=== PATIENT | female | born 1960 | race Caucasian/White ===

== ENCOUNTER → 2016-06-04 | Outpatient (CLI) | payer OTHER ==
--- NOTE | 2016-06-05 08:19 | MA ---
Screening Digital Mammogram with Digital Breast Tomosynthesis Clinical Indications: Routine screening. Technique: Standard cephalocaudal projections are obtained. Digital breast tomosynthesis was perform ed in the MLO projection with reconstruction at 1.0 mm slice thickness and composite MLO views recons tructed. This examination is processed by the CAD computer aided detection system. Comparison: April 22, 2015; January 31, 2014; and studies dating back to December 13, 2007. Breast density: B; There are scattered areas of fibroglandular density. Findings: CAD was reviewed. There are no new masses, new clusters of microcalcifications, or significant axillary lymphadenopathy . Impression: Negative mammogram. BI-RADS 1. Recommendation: Routine screening mammogram is recommended in one year. [facility] will send a result letter to the patient. Negative mammography should not preclude additional workup of a clinically suspicious finding. The patient's information is entered into a reminder system with a target due date for her next mammo gram.
== END ==
LOC: FIMAGING 15:50
DX: Z12.31 Encounter for screening mammogram for malignant neoplasm of breast (principal)
CPT/HCPCS: G0202

== ENCOUNTER 2016-06-20 07:15 | Emergency (ER) | payer OTHER ==
--- NOTE | 2016-06-20 08:14 | EDPHY ---
General - History History Review: I reviewed the patient's medical records Smoking Status: Never smoked Narrative: CHIEF COMPLAINT: Cough, flu-like symptoms HISTORY OF PRESENT ILLNESS: 5 to 6 days of cough, congestion, runny nose, fever , body aches. Minimal headache. No chest pain or shortness of breath. Symptoms have been mild to moderate. They are worse when lying down and improves arrest. Minimal change with [id number] remedies such as emergent C, cold ease and NSAIDs. No abdominal pain, nausea or vomiting. No flank pain. No urinary complaints. Her was sick for 2 weeks prior to this with similar complaints. She has no other associated complaints or modifying factors. REVIEW OF SYSTEMS: Ten systems reviewed and are negative unless otherwise noted in the HPI EXAMINATION General Appearance: Alert, no distress , coryza Head: normocephalic, atraumatic Eyes: Pupils equal and round, no conjunctival pallor or injection. EOMs intact. ENT, Mouth: Mucous membranes moist . Postnasal drip. No erythema or edema. No abscess. Ears are clear AOM are EOM Neck: Normal inspection, supple, non-tender. Anterior lymphadenopathy. No supraclavicular lymphadenopathy. Range of motion in all planes is painless Respiratory: Lungs are clear to auscultation. No wheezing, rhonchi or crackles. Cardiovascular: Tachycardic at 110 beats per minute. regular rhythm. No murmur. Pulses intact distally Gastrointestinal: Abdomen is soft and nontender Back: non-tender, no bony abnormalities Neurological: A&O, nonfocal Skin: Warm and dry, no rash Extremities: Nontender, no pedal edema Psychiatric: Mood and affect normal DIFFERENTIAL DIAGNOSES: Including but not limited to influenza, upper respiratory infection, bronchitis , viral illness unless MDM: 8:00 a.m. multiple complaints that are consistent with flu-like illness versus viral upper respiratory infection versus bronchitis. Her lungs are clear in all vogt without any consolidation, wheezing or crackles. She has a normal pulse oximetry. She is mildly tachycardic and she is febrile. I did offer ibuprofen , but she has already taken some Just prior to arrival. flu swab has been taking is pending at this time 8:45 a.m. I have re-evaluated the patient. Flu test is negative. Likely a bronchitis or upper respiratory infection. 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 She remained stable and in no acute distress. Discharged home with Zithromax as prescribed. She is declining pain cough medication at this time as she has [id number] cough medication that she would like to take. Follow up with primary care physician. She is comfortable with this plan. SUPERVISION: This patient was independently evaluated without the aide of supervising physician. (Souleymane Aj) Discussion: The patient was evaluated and managed by the Physician Research Contracts Supervisor/ Nurse Practitioner. My co-signature indicates that I have reviewed this chart and I agree with the findings and plan of care as documented. I am the secondary supervising physician. (Sabra Davis) - Objective Vital Signs: Initial Vital Signs Temperature (C) 39.0 C H 06/20/16 07:21 Heart Rate 116 H 06/20/16 07:21 Respiratory Rate 18 06/20/16 07:21 Blood Pressure 166/95 H 06/20/16 07:21 O2 Sat (%) 95 06/20/16 07:21 O2 Delivery Mode Room Air Allergies/Adverse Reactions: No Known Allergies Allergy (Unverified 01/30/15 16:01) Home Medications: Medication Instructions Recorded Azithromycin [Zithromax] 250 mg PO DAILY #6 tab 06/20/16 celeCOXIB [CeleBREX] 06/20/16 Departure - Departure Disposition: Home, Routine, Self-Care Clinical Impression: Flu-like symptoms, Bronchitis Condition: Good Instructions: Viral Syndrome (ED) Additional Instructions: Follow-up with primary care physician. Return to the ER for worsening symptoms or any chest pain Referrals: FOREIGN ALY [Primary Care Provider] - As per Instructions Prescriptions: Azithromycin [Zithromax] 250 mg PO DAILY #6 tab
[2016-06-20 09:02] VITALS: BP 143/92; PULSE 108; RESP 16; TEMP 100.4; O2SAT 96
== END 2016-06-20 09:01 | disposition home or self-care (01) ==
DX: J11.1 Influenza due to unidentified influenza virus with other respiratory manifestations (principal); J20.9 Acute bronchitis, unspecified

== ENCOUNTER → 2017-06-07 | Outpatient (CLI) | payer OTHER | LOC: FIMAGING 15:42 | PROVIDERS: ATTEND Family Medicine | DX: Z12.31 Encounter for screening mammogram for malignant neoplasm of breast (principal) ==

== ENCOUNTER → 2018-06-30 | Outpatient (CLI) | payer OTHER | LOC: FIMAGING 15:24 | PROVIDERS: ATTEND Family Medicine | DX: Z12.31 Encounter for screening mammogram for malignant neoplasm of breast (principal) ==

== ENCOUNTER 2018-09-01 15:50 | Emergency (ER) | payer OTHER ==
[2018-09-01] MEDS ORDERED: LET GEL TOPICAL 1 EA SYR TP ONE ×2 (16:16→16:17)
--- NOTE | 2018-09-01 16:16 | EDPHY ---
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 She has a laceration to the nasal bridge no deformity or swelling. No vision changes. No forehead lacerations. No epistaxis. No dental deformity or malocclusion. She states she did not hit her head and did not lose consciousness. She has no neck pain. She has mild right lateral hand pain but no bruising swelling or abrasions. She does not think it is broken. Severity: Moderate Modifying factors: None REVIEW OF SYSTEMS: Constitutional: denies: chills, fever, recent illness, recent injury EENTM: See HPI Respiratory: denies: cough, shortness of breath Cardiac: denies: chest pain, irregular heart rate, lightheadedness, palpitations Gastrointestinal/Abdominal: denies: abdominal pain, diarrhea, nausea, vomiting, blood streaked stools Genitourinary: denies: dysuria, frequency, hematuria, pain Musculoskeletal: See HPI Skin: denies: lesions, rash, jaundice, bruising Neurological: denies: headache, numbness, paresthesia, tingling, dizziness, weakness Hematologic/Lymphatic: denies: blood clots, easy bleeding, easy bruising Immunologic/allergic: denies: HIV/AIDS, transplant 10 systems reviewed and negative except as noted EXAM: GENERAL: Well-appearing, well-nourished and in no acute distress. HEAD: Atraumatic, normocephalic. EYES: Pupils equal round and reactive to light, extraocular movements intact, sclera anicteric, conjunctiva are normal. ENT: TMs normal, abrasion/laceration to nasal bridge, no swelling or crepitus. No deformity. Breathing clearly. No epistaxis. No septal hematoma. nares patent, oropharynx clear without exudates. Moist mucous membranes. No mandibular pain. No dental fractures or malalignment. NECK: Normal range of motion, supple without lymphadenopathy or JVD. LUNGS: Breath sounds clear to auscultation bilaterally and equal. No wheezes rales or rhonchi. HEART: Regular rate and rhythm without murmurs, rubs or gallops. ABDOMEN: Soft, nontender, normoactive bowel sounds. No guarding, no rebound. No masses appreciated. BACK: No CVA tenderness, no spinal tenderness, step-offs or deformities EXTREMITIES: Mild right lateral hand pain, no swelling or deformity. No pain with axial letting. Normal strength. Normal range of motion, no pitting or edema. No clubbing or cyanosis. NEUROLOGICAL: Cranial nerves II through XII grossly intact. Normal speech, normal gait. 5/5 strength, normal movement in all extremities, normal sensation , normal reflexes PSYCH: Normal mood, normal affect. 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 arthritis, HTN, lumbar laminectomy, - Family History Significant Family History: No pertinent family hx - Social History Smoking Status: Never smoked Alcohol Use: None Constitutional: Initial Vital Signs Temperature (C) 37.1 C 09/01/18 15:54 Heart Rate 91 09/01/18 15:54 Respiratory Rate 16 09/01/18 15:54 Blood Pressure 171/89 H 09/01/18 15:54 O2 Sat (%) 95 09/01/18 15:54 O2 Delivery Mode Room Air Allergies/Adverse Reactions: No Known Allergies Allergy (Unverified 09/01/18 15:54) Home Medications: Medication Instructions Recorded celeCOXIB [CeleBREX] 06/20/16 Losartan/Hctz 50/12.5 09/01/18 Medical Decision Making Procedures: Procedure: Laceration repair. Verbal consent was obtained from the patient. The 2 cm H shaped nose laceration was anesthetized with 1% lidocaine with epi and bicarbonate locally infiltrated. The wound was irrigated copiously according to protocol, draped and explored to its base. It was approximately 1/2 cm deep. There were no deep structures involved. No tendon, nerve, or vascular injury was identified when explored through full range of motion. No foreign body was identified. The wound was repaired with 6.0 fast-absorbing gut, 7 sutures, interrupted. The wound repair was complex with multiple flap alignment. The procedure was performed by myself. A dressing was then placed with sterile gauze. ED Course/Re-evaluation: Patient declines x-rays of her hand or CT of her nose. I agree that they are unlikely to be fractured. She will require sutures for her nose. Will place LET before injection. 5:30 p.m. Patient tolerated suture suture repair well. It was unusually shaped in the shape of an "H". I was able to realign the flaps carefully however she understands that some of them may not survive. She has been bandage. We discussed care for observable sutures. 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 We discussed follow-up and indications for returning. She continues to decline x- rays. Differential Diagnosis: Partial list of the Differential diagnosis considered include but were not limited to; laceration, fracture and although unlikely based on the history and physical exam, I also considered septal hematoma eye injury, head injury, neck injury. I discussed these differential diagnoses and the plan with the patient as well as the usual and expected course. The patient understands that the diagnosis is provisional and that in medicine we are not always correct and that further workup is often warranted. Usual and customary warnings were given. All of the patient's questions were answered. The patient was instructed to return to the emergency department should the symptoms at all worsen or return, otherwise to followup with the physician as we discussed. - Data Points Medications Given: Discontinued Medications Diphtheria/Tetanus/Acell Pertussis (Boostrix) 0.5 ml IM .ONCE ONE Stop: 09/01/18 16:18 Last Admin: 09/01/18 16:24 Dose: 0.5 ml Tetracaine/Epinephrine/Lidocaine (Let Gel Topical) 1 ea TP EDNOW ONE Stop: 09/01/18 16:18 Last Admin: 09/01/18 16:18 Dose: 1 ea Departure - Departure Disposition: Home, Routine, Self-Care Clinical Impression: Laceration Condition: Fair Instructions: Care For Your Absorbable Stitches (ED) Additional Instructions: If your stitches do not fall out in 5-6 days return to have them removed. Referrals: FOREIGN ALY [Primary Care Provider] - As per Instructions
[2018-09-01] MEDS ORDERED: TDAP ADULT 0.5 ML INJ (BOOSTRIX) IM ONE (16:17)
[2018-09-01 17:44] VITALS: BP 140/78
== END 2018-09-01 17:42 | disposition home or self-care (01) ==
PROC: 09QKXZZ Repair Nasal Mucosa and Soft Tissue, External Approach (ICD-10-PCS; principal; 2018-09-01)
DX: S01.21XA Laceration without foreign body of nose, initial encounter (principal); Y93.01 Activity, walking, marching and hiking; Y92.480 Sidewalk as the place of occurrence of the external cause; Z23 Encounter for immunization